=== PATIENT | female | born 1955 | race African-American/Black ===

== ENCOUNTER 2021-03-19 10:06 | Day surgery (SDC) | payer OTHER ==
[~2021-03-19] VITALS: Ht 149.9 cm; Wt 69.0 kg
[~2021-03-19 10:06] MED LIST changes: +CIPROFLOXACIN 0.3% OPHTH SOLUTION 5ML BOTTLE. OS ONE; +HYDROmorphone 2 MG/ML VIAL IVP PRN; +IV RINGERS,LACTATED 1000ML 1,000 ML IV SCH; +LIDOCAINE 2% JELLY 6ML IN APPLICATOR. OS ONE; +MORPHINE SULFATE 2 MG/ML VIAL. IVP PRN; +PROCHLORPERAZINE 10 MG/2 ML VIAL. IVP PRN; +PROPARACAINE 0.5% OPHTH SOLUTION 15ML BOTTLE. OS ONE; +fentaNYL PF VIAL 100 MCG/2 ML VIAL IVP PRN
[2021-03-19 10:58] VITALS: BP 140/68
[2021-03-19] MEDS: PHENYLEPHRINE 10% OPHTH SOLUTION 5ML BOTTLE. OS SCH ×3 (11:00→11:10)
[2021-03-19] MEDS: CYCLOPENTOLATE 1% OPHTH SOLUTION 2ML BOTTLE. OS SCH ×3 (11:00→11:10)
[2021-03-19] MEDS ORDERED: LIDOCAINE 1%/PHENYLEPH 1.5% PF OPHTH 1 ML VIAL. ONE (11:01)
[2021-03-19] MEDS ORDERED: NEO/POLYMYX/DEXAMETH OPHTH OINTMENT 3.5GM TUBE. ONE (11:01)
[2021-03-19] MEDS ORDERED: TRIAMCINOLONE ACET/PF OPHTH 40 MG/ML VIAL. IO ONE (11:01)
[2021-03-19] MEDS ORDERED: CHONDROIT-SOD-HYALURONATE KIT. ONE (11:01)
[2021-03-19] MEDS ORDERED: CHONDROITIN-SOD-HYALURONATE 0.5 ML DISP.SYRIN. ONE (11:02)
[2021-03-19] MEDS ORDERED: GLYCOPYRROLATE 1 MG/5 ML VIAL. ONE (12:24)
[2021-03-19] MEDS ORDERED: PROPOFOL 10 MG/ML (20ML) VIAL. IV ONE (12:45)
[2021-03-19] MEDS ORDERED: LIDOCAINE 2% PF 5 ML VIAL. ONE (12:45)
[2021-03-19] MEDS ORDERED: PHENYLEPHRINE in 0.9% NACL PF 1 MG/10 ML SYRINGE. IV ONE (12:45)
[2021-03-19] MEDS ORDERED: SEVOFLURANE 31 TO 60 MINUTES. IH ONE (12:45)
--- NOTE | 2021-03-19 12:58 | OP ---
DATE OF SURGERY: 03/19/2021 PREOPERATIVE DIAGNOSIS: Incipient or mature cataract of the left eye. PROCEDURE: Phacoemulsification with posterior chamber intraocular lens implantation with Trypan blue staining due to no red reflex. ANESTHESIA: General due to patient severe anxiety. SURGEON: Nila Parisi MD DESCRIPTION OF PROCEDURE: The left eye was prepped with Betadine in the usual sterile fashion and draped. A paracentesis was performed followed by instillation of preservative-free phenylephrine admixed with balanced salt solution and lidocaine. A temporal clear corneal incision was made and air was injected into the anterior chamber followed by Vision Blue. After leaving the stain for approximately one minute, it was evacuated with Viscoat and the capsulorrhexis was then adequately visualized and performed. Light hydrodissection followed and the phacoemulsification handpiece was used to remove the nucleus in a modified stop and chop fashion stopping to instill Viscoat to protect the corneal endothelium and the posterior capsule due to the fact that the patient had a mature cataract. Once this had been done, there was a significant posterior capsular plaque, which was removed under capsular settings of the I/A handpiece with the exception of the posterior subcapsular plaque in the fornices. Once the visual axis was clear, Provisc was placed into the anterior chamber and an Amandeep model [id number] with a power of 24.5 diopters was placed into the capsular bag. Balanced salt solution was used to hydrate the corneal wounds and the viscoelastic evacuated with the I/A handpiece. Once no leak was noted, Maxitrol was placed on the eye and the eye shielded and the patient was sent to the recovery room for general anesthesia protocol. SARAHY DR: Mark TID: [id number]
[2021-03-19 13:07] VITALS: BP 151/89
== END 2021-03-19 13:40 | disposition home or self-care (01) ==
LOC: SURG 10:06 → MERGE 12:00 → SURG 13:40
PROVIDERS: ATTEND Ophthalmology
DX: H25.092 Other age-related incipient cataract, left eye (principal); I10 Essential (primary) hypertension; M19.90 Unspecified osteoarthritis, unspecified site; Z98.51 Tubal ligation status; Z98.890 Other specified postprocedural states; Z79.899 Other long term (current) drug therapy; Z79.82 Long term (current) use of aspirin; Z87.891 Personal history of nicotine dependence
CPT/HCPCS: 66984; J0171; J0690; J1580; J2370; J2704; J3490; V2632; J3301

== ENCOUNTER → 2021-03-19 | Outpatient (CLI) | payer MEDICARE, OTHER ==
[~2021-03-19] MED LIST: AMLO-187 PO; AMOX500C PO; ASPI-630 PO; CLOP75TA PO; LISI10TA16 PO
[2021-03-19 13:07] VITALS: BP 151/89
== END ==
LOC: LAB 10:29
PROVIDERS: ATTEND Ophthalmology
DX: Z01.812 Encounter for preprocedural laboratory examination (principal); Z20.822 Contact with and (suspected) exposure to COVID-19
CPT/HCPCS: 87426